=== PATIENT | female | born 1940 | race Caucasian/White ===

== ENCOUNTER 2017-09-20 18:46 | Emergency (ER) | payer MEDICARE ==
[~2017-09-20] VITALS: Ht 180.3 cm; Wt 104.5 kg
[2017-09-20 18:56] VITALS: BP 137/61; PULSE 68; RESP 16; TEMP 97.8; O2SAT 96
[2017-09-20] MEDS ORDERED: ASPI-516 CHEW (19:14)
[2017-09-20] MEDS ORDERED: WARF-58 PO (19:14)
[2017-09-20] MEDS ORDERED: CALC1CHW PO (19:14)
[2017-09-20] MEDS ORDERED: TOPR50TA PO (19:14)
[2017-09-20] MEDS ORDERED: CHON250C (19:14)
[2017-09-20] MEDS ORDERED: LISI10TA3 PO (19:14)
[2017-09-20] MEDS ORDERED: LEVO100T5 PO (19:14)
[2017-09-20] MEDS ORDERED: ROSU1TAB4 PO (19:14)
[2017-09-20] MEDS ORDERED: GABA800T PO (19:14)
[2017-09-20] MEDS ORDERED: PANT40TA3 PO (19:14)
[2017-09-20] MEDS ORDERED: SODIUM CHLOR 0.9% 1000 ML INJ 1,000 ML IV ONE (19:19)
[2017-09-20] MEDS ORDERED: levETIRAcetam INJ 100 ML IV ONE (19:30)
[2017-09-20] MEDS ORDERED: SODIUM CHLORIDE 0.9% FLUSH 10 ML FLUSH IVF PRN (19:30)
--- NOTE | 2017-09-20 19:50 | PD ---
HPI Chief Complaint: Seizure Time Seen by Provider: 19:09 Travel History International Travel<30 days: No Contact w/Intl Traveler<30days: No Traveled to known affect area: No History of Present Illness HPI This is a 76-year-old female who presents to the emergency department having been eating dinner with her son when she lost consciousness and had repetitive motions that looked like a seizure at the table. She did not hit her head. This lasted for about 20 seconds and then subsided. EMS reports that the patient had urinary incontinence. She says she has had seizures in the past. She has had multiple episodes of passing out ever since she was a child. Several months ago she was hospitalized at an outside hospital and had an extensive workup for a similar episode. She is not on any seizure medications because she says she does not want to take any additional medications. 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 Currently she is back to normal and wants to go home. PFSH Past Medical History Atrial Fibrillation: Yes High Cholesterol: Yes COPD: Yes Cerebrovascular Accident: Yes GERD: Yes Medical other: Yes (occlussion of left carotid artery) Seizures: Yes Thyroid Disease: Yes Past Surgical History Appendectomy: Yes Tonsillectomy: Yes Other Surgery: Yes (PROLAPSED BOWEL , BLADDER SLING) Social History Alcohol Use: No Tobacco Use: No Substance Use: No Allergies-Medications (Allergen,Severity, Reaction): Coded Allergies: iodine (Verified Allergy, Unknown, Itching, 09/20/17) codeine (Verified Adverse Reaction, Unknown, 09/20/17) VOMITING Reported Meds & Prescriptions Reported Meds & Active Scripts Active Reported Pantoprazole (Pantoprazole Sodium) 40 Mg Tab 40 Mg PO DAILY Antacid Calcium Regular Strength (Calcium Carbonate) 500 Mg Chew 600 Mg PO PRN Chondroitin Sulfate (Chondroitin Sulfate A) 250 Mg Capsule Warfarin 3 Mg Tab 3 Mg PO DAILY Rosuvastatin (Rosuvastatin Calcium) 5 Mg Tab 5 Mg PO DAILY Levothyroxine (Levothyroxine Sodium) 100 Mcg Tab 100 Mcg PO DAILY Gabapentin 800 Mg Tab 800 Mg PO TID Aspirin 81 Mg Chew 81 Mg CHEW DAILY Lisinopril 10 Mg Tab 10 Mg PO DAILY Toprol XL (Metoprolol Succinate) 50 Mg Tab 50 Mg PO DAILY Review of Systems Except as stated in HPI: all other systems reviewed are Neg Physical Exam Narrative GENERAL:Well appearing, no acute distress SKIN: Focused skin assessment warm and dry. HEAD: Atraumatic. Normocephalic. EYES: Pupils equal and round. No injection or drainage. ENT: Moist mucous membranes NECK: Trachea midline. CARDIOVASCULAR: Regular rate and rhythm. No murmur appreciated. RESPIRATORY: Clear to auscultation. Breath sounds equal bilaterally. GASTROINTESTINAL: Abdomen soft, non-tender, nondistended. MUSCULOSKELETAL: No obvious deformities. NEUROLOGICAL: Awake and alert. No obvious cranial nerve deficits. No dysarthria or aphasia. No upper or lower extremity drift. No upper extremity ataxia. PSYCHIATRIC: Appropriate mood and affect; insight and judgment normal. Data Data Last Documented VS Vital Signs Date Time Temp Pulse Resp B/P (MAP) Pulse Ox O2 Delivery O2 Flow Rate FiO2 09/20/17 21:35 95 Room Air 09/20/17 21:23 70 16 09/20/17 19:02 2.00 09/20/17 18:56 97.8 Orders Orders Complete Blood Count With Diff (09/20/17 19:19) Electrocardiogram (09/20/17 ) Ct Brain W/O Iv Contrast(Rout) (09/20/17 ) Blood Glucose (09/20/17 19:19) Ecg Monitoring (09/20/17 19:19) Iv Access Insert/Monitor (09/20/17 19:19) Oximetry (09/20/17 19:19) Comprehensive Metabolic Panel (09/20/17 19:19) Sodium Chlor 0.9% 1000 Ml Inj (Ns 1000 M (09/20/17 19:19) Sodium Chloride 0.9% Flush (Ns Flush) (09/20/17 19:30) Urinalysis - C+S If Indicated (09/20/17 19:19) Levetiracetam Inj (Keppra Inj) (09/20/17 19:30) Urine Culture (09/20/17 21:21) Labs Laboratory Tests Test 09/20/17 19:26 09/20/17 21:21 White Blood Count 8.2 TH/MM3 Red Blood Count 4.80 MIL/MM3 Hemoglobin 13.7 GM/DL Hematocrit 41.9 % Mean Corpuscular Volume 87.3 FL Mean Corpuscular Hemoglobin 28.5 PG Mean Corpuscular Hemoglobin Concent 32.6 % Red Cell Distribution Width 13.2 % Platelet Count 209 TH/MM3 Mean Platelet Volume 8.5 FL Neutrophils (%) (Auto) 71.0 % Lymphocytes (%) (Auto) 17.7 % Monocytes (%) (Auto) 7.7 % Eosinophils (%) (Auto) 3.0 % Basophils (%) (Auto) 0.6 % Neutrophils # (Auto) 5.8 TH/MM3 Lymphocytes # (Auto) 1.5 TH/MM3 Monocytes # (Auto) 0.6 TH/MM3 Eosinophils # (Auto) 0.2 TH/MM3 Basophils # (Auto) 0.0 TH/MM3 CBC Comment DIFF FINAL Differential Comment Blood Urea Nitrogen 12 MG/DL Creatinine 0.93 MG/DL Random Glucose 106 MG/DL Total Protein 6.5 GM/DL Albumin 3.5 GM/DL Calcium Level 9.1 MG/DL Alkaline Phosphatase 84 U/L Aspartate Amino Transf (AST/SGOT) 23 U/L Alanine Aminotransferase (ALT/SGPT) 20 U/L Total Bilirubin 0.3 MG/DL Sodium Level 142 MEQ/L Potassium Level 3.5 MEQ/L Chloride Level 105 MEQ/L Carbon Dioxide Level 27.0 MEQ/L Anion Gap 10 MEQ/L Estimat Glomerular Filtration Rate 59 ML/MIN Urine Color YELLOW Urine Turbidity CLOUDY Urine pH 6.0 Urine Specific [place] 1.010 Urine Protein NEG mg/dL Urine Glucose (UA) NEG mg/dL Urine Ketones NEG mg/dL Urine Occult Blood MOD Urine Nitrite NEG Urine Bilirubin NEG Urine Urobilinogen LESS THAN 2 mg/dL Urine Leukocyte Esterase LARGE Urine RBC 14 /hpf Urine WBC /hpf Urine WBC Clumps FEW Urine Squamous Epithelial Cells 9 /hpf Urine Bacteria FEW /hpf Urine Hyaline Casts 1 /lpf Urine Mucus FEW /lpf Microscopic Urinalysis Comment CULTURE INDICATED MDM Medical Decision Making Medical Screen Exam Complete: Yes Emergency Medical Condition: Yes Interpretation(s) afebrile, no tachycardia, normotensive no leukocytosis electrolytes within normal limits urinalysis: infection Last [address] 09/20/17 Signed Impressions: CONCLUSION: 1. No acute intracranial abnormalities. Remote left MCA distribution infarct. Ethmoid and sphenoid sinus disease. Differential Diagnosis no leukocytosis electrolytes within normal limits urinalysis: infection Last [address] 09/20/17 Signed Impressions: CONCLUSION: 1. No acute intracranial abnormalities. Remote left MCA distribution infarct. Ethmoid and sphenoid sinus disease. Narrative Course This is a 76-year-old female who presents to the emergency department having had a witnessed seizure. This is her fourth seizure, the second 1 in 10 weeks. She was placed on a monitor and an IV was established. Labs are reassuring. Urinalysis demonstrates urinary tract infection. She recently completed ciprofloxacin. She does not take anything for seizures. I recommended that she start Keppra. She is given a dose of Keppra in the emergency department and will be discharged with a prescription. She wants to discuss it with her primary care physician before starting it. My concern is that she is on Coumadin because of a history of blood clot as she has another seizure she may hit her head. She understands my concerns and wants to follow with her primary care physician. She will be discharged on Keflex for her urinary tract infection. Her family expressed some frustration with us for starting Keppra and not detailing the side effects to her. I sat and discussed the side effects of Keppra with the family, and encouraged him to discuss it with a primary care physician. Diagnosis Primary Impression: Seizure Additional Impression: Urinary tract infection Qualified Codes: N30.00 - Acute cystitis without hematuria Patient Instructions: General Instructions Additional Instructions: If you develop fever, persistent vomiting, back pain, or inability to eat return to the emergency department as your urine infection may have progressed to a kidney infection. Complete your antibiotics as prescribed. Stay well hydrated with Gatorade or water. Followup with your primary care physician in 2-3 days if your symptoms have not resolved. Med/Other Pt SpecificInfo: Prescription(s) given Scripts Levetiracetam (Keppra) 500 Mg Tab 500 MG PO BID for Control Seizures, #60 TAB 0 Refills Prov: Lizabeth Suarez MD 09/20/17 Cephalexin (Keflex) 500 Mg Cap 500 MG PO Q12H for Infection for 7 Days, #14 CAP 0 Refills Prov: Lizabeth Suarez MD 09/20/17 Disposition: 01 DISCHARGE HOME Condition: Stable Lizabeth Suarez MD Sep 20, 2017 19:50
--- NOTE | 2017-09-20 20:04 | RADRPT ---
EXAM DATE: 09/20/2017 7:45 PM EDT AGE/SEX: 76 years / Female INDICATIONS: Seizure. CLINICAL DATA: This is the patient's initial encounter. Patient reports that signs and symptoms have been present for 1 day and indicates a pain score of 0/10. MEDICAL/SURGICAL HISTORY: Cerebrovascular disease. Cardiovascular disease. Seizures. Appendectom y. RADIATION DOSE: 56.35 CTDI (mGy) COMPARISON: No prior exams available for comparison. TECHNIQUE: CT of the head without contrast. Using automated exposure control and adjustment of the mA and/or kV according to patient size, radiation dose was kept as low as reasonably achievable to ob tain optimal diagnostic quality images. DICOM format image data is available electronically for revi ew and comparison. FINDINGS: Cerebrum: The ventricles are normal for age. No evidence of midline shift, mass lesion, hemorrhage or acute infarction. There is a remote left MCA distribution infarct. No extraaxial fluid collection s are seen. Posterior Fossa: The cerebellum and brainstem are intact. The 4th ventricle is midline. The cerebe llopontine angle is unremarkable. Extracranial: The visualized portion of the orbits is intact. There is fluid in the septated right s phenoid sinus and partial opacification of the ethmoid air cells. Skull: The calvaria is intact. No evidence of skull fracture. CONCLUSION: 1. No acute intracranial abnormalities. Remote left MCA distribution infarct. Ethmoid and sphenoid s inus disease. Electronically signed by: Osmar Dasilva MD 09/20/2017 8:03 PM EDT
[2017-09-20 20:06] LABS: AUTOMATED NEUTROPHIL # 5.8 TH/MM3 (1.8-7.7); BASOPHIL % 0.6 % (0.0-2.0); EOSINOPHIL # 0.2 TH/MM3 (0-0.4); HEMATOCRIT 41.9 % (35.0-46.0); HEMOGLOBIN 13.7 GM/DL (11.6-15.3); LYMPH % 17.7 % (9.0-44.0); LYMPHOCYTE # 1.5 TH/MM3 (1.0-4.8); MEAN CELL VOLUME 87.3 FL (80.0-100.0); MEAN CORPUSCULAR HEMOGLOBIN 28.5 PG (27.0-34.0); MEAN CORPUSCULAR HGB CONC 32.6 % (32.0-36.0); MEAN PLATELET VOLUME 8.5 FL (7.0-11.0); MONO % 7.7 % (0.0-8.0); MONOCYTE # 0.6 TH/MM3 (0-0.9); PLATELET COUNT 209 TH/MM3 (150-450); RED CELL DISTRIBUTION WIDTH 13.2 % (11.6-17.2); WHITE BLOOD COUNT 8.2 TH/MM3 (4.0-11.0)
[2017-09-20 20:56] LABS: ALBUMIN 3.5 GM/DL (3.4-5.0); AST (GOT) 23 U/L (15-37); BLOOD UREA NITROGEN 12 MG/DL (7-18); CALCIUM 9.1 MG/DL (8.5-10.1); CHLORIDE 105 MEQ/L (98-107); CREATININE 0.93 MG/DL (0.50-1.00); GLOMERULAR FILTRATION RATE 59 ML/MIN (>89); GLUCOSE,RANDOM 106 MG/DL (74-106); SODIUM (NA) 142 MEQ/L (136-145)
[2017-09-20 21:01] LABS: ALKALINE PHOSPHATASE 84 U/L (45-117); ALT (GPT) 20 U/L (10-53); TOTAL BILIRUBIN ADULT 0.3 MG/DL (0.2-1.0); TOTAL PROTEIN 6.5 GM/DL (6.4-8.2)
[2017-09-20 21:23] VITALS: BP 174/77; PULSE 70; RESP 16; O2SAT 97
[2017-09-20 21:35] VITALS: O2SAT 95
[2017-09-20 21:46] LABS: BACTERIA, URINE FEW /hpf; BILIRUBIN, URINE NEG (NEG); BLOOD, URINE MOD (NEG); GLUCOSE,URINE NEG (NEG); HYALINE CAST, URINE 1 /lpf (RARE); KETONE, URINE NEG (NEG); MUCUS URINE FEW /lpf (OCC); NITRITE,URINE NEG (NEG); SQUAMOUS EPITHELIAL CELL URINE 9 /hpf (0-5); URINE COLOR YELLOW (YELLW/STRAW); URINE LEUKOCYTE ESTERASE LARGE (NEG); WHITE BLOOD CELL CLUMPS FEW
[2017-09-20] MEDS ORDERED: CEPH-460 PO (22:18)
[2017-09-20] MEDS ORDERED: LEVE500 PO (22:18)
[2017-09-20 22:27] VITALS: BP 156/72
--- NOTE | 2017-09-21 14:02 | EKG ---
Date Performed: 09/20/2017 Time Performed: 19:01:11 PTAGE: 76 years EKG: Sinus rhythm POSSIBLE LEFT ATRIAL ENLARGEMENT MARKED LEFT AXIS DEVIATION POSSIBLE RIGHT VENTRICULAR CONDUCTION DE LAY POSSIBLE LEFT VENTRICULAR HYPERTROPHY POSSIBLE SEPTAL MYOCARDIAL INFARCTION SLIGHT NONSPECIFIC ST ABNORMALITY LATERALLY ABNORMAL ECG NO PREVIOUS TRACING DOCTOR: Jigar Rutherford Interpretating Date/Time 09/21/2017 14:01:36
== END 2017-09-20 22:34 | disposition home or self-care (01) ==
LOC: NEPE 18:46
DX: R56.9 Unspecified convulsions (principal); N30.00 Acute cystitis without hematuria; E07.9 Disorder of thyroid, unspecified; E78.00 Pure hypercholesterolemia, unspecified; I48.91 Unspecified atrial fibrillation; K21.9 Gastro-esophageal reflux disease without esophagitis; Z79.01 Long term (current) use of anticoagulants; Z79.899 Other long term (current) drug therapy
CPT/HCPCS: 70450; 80053; 81001; 85025; 87077; 87086; 87186; 93005; 96365; 99285; J1953; J7030